=== PATIENT | female | born 2000 | race Caucasian/White ===

== ENCOUNTER 2022-03-04 12:23 | Emergency (ER) | payer BC ==
[~2022-03-04] VITALS: Ht 160 cm; Wt 47.6 kg
[2022-03-04 12:47] VITALS: BP 120/73
--- NOTE | 2022-03-04 13:00 | NUR ---
22YO FEMALE PT C/O LOWER ABDOMINAL AND PELVIC PAIN XYESTERDAY. REPORTS MILD VAGINAL BLEEDING. PT CURRENTLY 6 WEEKS . DENIES N/V/D, CHEST PAIN OR SOB. ABDOMEN NON DISTENDED OR TENDER. PT AAOX4, NO VISIBLE DISTRESS. HOB POSITIONED PER COMFORT. HX;DENIES NKA
--- NOTE | 2022-03-04 13:10 | NUR ---
LAB AT BEDSIDE
--- NOTE | 2022-03-04 13:19 | NUR ---
ULTRASOUND AT BEDSIDE
[2022-03-04 13:35] LABS: APPEARANCE,URINE CLEAR (CLEAR); BILIRUBIN,URINE NEGATIVE (NEGATIVE); BLOOD, URINE 2+ (NEGATIVE); COLOR,URINE YELLOW (YELLOW); LEUKOCYTE ESTERASE ,URINE NEGATIVE (NEGATIVE); NITRITE, URINE NEGATIVE (NEGATIVE); UGLUCOSE NEGATIVE (NEGATIVE)
[2022-03-04 13:39] LABS: BASOPHILS % (AUTO) 0.4 % (0.0-2.0); EOSINOPHILS % (AUTO) 0.9 % (0.0-4.0); HEMATOCRIT 35.7 % (36-48); HEMOGLOBIN 12.2 g/dL (12.0-16.0); LYMPHOCYTES # (AUTO) 1.9 K/uL (2.5-16.5); LYMPHOCYTES % (AUTO) 34.2 % (20.5-51.1); MEAN CORPUSCULAR HEMOGLOBIN 31 pg (27-31); MEAN CORPUSCULAR HGB CONC 34 g/dL (33-37); MEAN CORPUSCULAR VOLUME 89.7 fL (80-94); MONOCYTES # (AUTO) 0.4 K/uL (0.8-1.0); MONOCYTES % (AUTO) 6.6 % (1.7-9.3); NEUTROPHILS # (AUTO) 3.1 K/uL (1.8-7.7); NEUTROPHILS % (AUTO) 57.9 % (42.2-75.2); PLATELET COUNT (AUTO) 263 K/uL (140-450); RED BLOOD CELL COUNT(AUTO) 3.98 MIL/uL (4.20-5.40); RED CELL DISTRIBUTION WIDTH 15.4 % (11.6-13.7); WHITE BLOOD COUNT (AUTO) 5.4 K/uL (4.5-11.0)
[2022-03-04 14:50] VITALS: BP 120/73
--- NOTE | 2022-03-04 14:50 | NUR ---
The patient's care was reviewed and supervised by Irene Alaniz RN.
--- NOTE | 2022-03-04 14:50 | NUR ---
Patient discharged with v/s stable. Written and verbal after care instructions FOR MISCARRIAGE given and explained. Patient verbalized understanding. Ambulatory with steady gait. All questions addressed prior to discharge. Advised to follow up with PMD.
[2022-03-04 15:13] LABS: RBC,URINE 0-5 /HPF (0-5); WBC,URINE 0-5 /HPF (0-5)
[2022-03-04 15:14] LABS: TRICHOMONAS,URINE None Seen /HPF (None Seen); YEAST,URINE None Seen /HPF (None Seen)
== END 2022-03-04 14:50 | disposition home or self-care (01) ==
LOC: MED 12:23
DX: O03.9 Complete or unspecified spontaneous abortion without complication (principal)
CPT/HCPCS: 36415; 76817; 81001; 81025; 84702; 85025; 86900; 86901; 99284; Q0092

== ENCOUNTER 2022-03-07 11:38 | Emergency (ER) | payer BC ==
[~2022-03-07] VITALS: Ht 160 cm; Wt 47.6 kg
[2022-03-07 11:46] VITALS: BP 142/84
--- NOTE | 2022-03-07 11:46 | NUR ---
pt requesting we do not give information to family/spouse at this time.
--- NOTE | 2022-03-07 11:55 | NUR ---
pt ambulated to bed 12
--- NOTE | 2022-03-07 12:10 | NUR ---
22/F PRESENTS TO ED WITH C/O ABDOMINAL PAIN, N/V/D SINCE SATURDAY NIGHT. PATIENT REPORTS BEING SEEN HERE ON SATURDAY FOR DIARRHEA BUT REPORTS ALL OTHER SYMPTOMS BEGAN THAT NIGHT. PATIENT DENIES TAKING ANY NEW MEDS FOR SYMPTOMS, DENIES FEVERS, CHILLS, CP OR SOB.
[2022-03-07] MEDS ORDERED: FAMOTIDINE 20 MG/2 ML VIAL IVP ONE (12:50)
[2022-03-07] MEDS ORDERED: ONDANSETRON 4 MG/2 ML VIAL IVP ONE (12:50)
[2022-03-07] MEDS ORDERED: NACL 0.9% 1,000 ML IV SCH (12:50)
[2022-03-07 13:31] LABS: BASOPHILS % (AUTO) 0.4 % (0.0-2.0); EOSINOPHILS % (AUTO) 0.3 % (0.0-4.0); HEMATOCRIT 38.1 % (36-48); HEMOGLOBIN 12.7 g/dL (12.0-16.0); LYMPHOCYTES # (AUTO) 1.1 K/uL (2.5-16.5); LYMPHOCYTES % (AUTO) 18.8 % (20.5-51.1); MEAN CORPUSCULAR HEMOGLOBIN 30 pg (27-31); MEAN CORPUSCULAR HGB CONC 33 g/dL (33-37); MEAN CORPUSCULAR VOLUME 89.5 fL (80-94); MONOCYTES # (AUTO) 0.2 K/uL (0.8-1.0); MONOCYTES % (AUTO) 4.2 % (1.7-9.3); NEUTROPHILS # (AUTO) 4.3 K/uL (1.8-7.7); NEUTROPHILS % (AUTO) 76.3 % (42.2-75.2); PLATELET COUNT (AUTO) 259 K/uL (140-450); RED BLOOD CELL COUNT(AUTO) 4.25 MIL/uL (4.20-5.40); RED CELL DISTRIBUTION WIDTH 15.2 % (11.6-13.7); WHITE BLOOD COUNT (AUTO) 5.6 K/uL (4.5-11.0)
[2022-03-07 13:46] LABS: ANION GAP 15.2 (8-16); CARBON DIOXIDE 25.5 mmol/L (21-32); CREATININE 0.7 mg/dL (0.6-1.3); POTASSIUM 3.7 mmol/L (3.5-5.1); TOTAL BILIRUBIN 0.5 mg/dL (0.0-1.0)
[2022-03-07] MEDS ORDERED: ATRO1TAB PO (13:56)
[2022-03-07] MEDS ORDERED: ONDA-188 PO (13:56)
[2022-03-07 14:24] VITALS: BP 118/69
--- NOTE | 2022-03-07 14:24 | NUR ---
Patient discharged with v/s stable. Written and verbal after care instructions ABOUT DIARRHEA AND VOMITING given and explained. Patient alert, oriented and verbalized understanding of instructions. Ambulatory with steady gait. All questions addressed prior to discharge. ID band removed. Patient advised to follow up with PMD. Rx of ZOFRAN AND LOMOTIL given. Patient educated on indication of medication including possible reaction and side effects. Opportunity to ask questions provided and answered.
== END 2022-03-07 14:24 | disposition home or self-care (01) ==
LOC: MED 11:38
DX: R10.10 Upper abdominal pain, unspecified (principal); R19.7 Diarrhea, unspecified; J45.909 Unspecified asthma, uncomplicated
CPT/HCPCS: 36415; 80053; 81002; 81025; 85025; 96361; 96374; 96375; 99284; J2405; J3490; J7030